=== PATIENT | female | born 1970 | race Caucasian/White ===

== ENCOUNTER → 2020-10-23 | Outpatient (CLI) | payer OTHER ==
--- NOTE | 2020-10-23 14:29 | DIREP ---
PROCEDURE:XR SPINE CERVICAL COMP W/ OBLIQUES COMPARISON:None. INDICATIONS:CERVICALGIA TECHNIQUE:AP, lateral, bilateral oblique, and dens views of the cervical spine are provided. FINDINGS: ALIGNMENT:Normal. VERTEBRAE:Anterior and posterior endplate osteophytes are seen at C4-5, C5-6 and C6-7. Bilateral facet arthropathy is seen at multiple levels in the mid and lower cervical spine. Prominent neural foraminal narrowing is seen on the right at C3-4 and C4-5. Evaluation of the neural foramina on the left is limited due to positioning of the oblique view. DISK SPACES:Moderate disc space narrowing is seen at C4-5 with severe disc space narrowing at C5-6 and C6-7. CERVICAL RIBS:None. OTHER:Normal. CONCLUSION:There are findings of moderate spondylosis and degenerative disc disease at C4-5, C5-6 and C6-7. Dictated by: Amos Spence M.D. on 10/23/2020 at 02:23 PM
== END | disposition home or self-care (01) ==
LOC: RAD 12:20
PROVIDERS: ATTEND Nurse Practitioner Family
DX: M48.02 Spinal stenosis, cervical region (principal); M50.31 Other cervical disc degeneration, high cervical region; M47.812 Spondylosis without myelopathy or radiculopathy, cervical region; M25.78 Osteophyte, vertebrae
CPT/HCPCS: 72050